=== PATIENT | female | born 2000 | race Two or more races ===

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

== ENCOUNTER 2019-07-28 15:07 | Emergency (ER) | payer OTHER ==
[2019-07-28 15:13] VITALS: BP 129/48; PULSE 77; TEMP 98.2; BMI 21.9
[2019-07-28] MEDS ORDERED: ALBUTEROL SO4 2.5/IPRATROPIUM 0.5 INH SOL 3 ML VIAL.NEB. NEB ONE ×5 (16:33→17:24)
[2019-07-28] MEDS ORDERED: predniSONE 20 MG TABLET (UD) PO ONE (16:33)
--- NOTE | 2019-07-28 16:37 | PDOC ---
History of Present Illness - General Chief Complaint: Asthma Stated Complaint: ASTHMA Time Seen by Provider: 07/28/19 16:31 History Source: Patient Exam Limitations: No Limitations - History of Present Illness Is this a multiple visit Asthma Patient?: No Associated Symptoms: reports: cough, wheezing. denies: chest pain/soreness, earache, facial pain, fever/chills, muscle aches, nasal congestion, nasal drainage, shortness of breath, sinus infection, sore throat Past History - Travel Traveled outside of the country in the last 30 days: No Close contact w/someone who was outside of country & ill: No - Past Medical History Allergies/Adverse Reactions: Allergies Allergy/AdvReac Type Severity Reaction Status Date / Time No Known Allergies Allergy Verified 11/20/18 15:59 Home Medications: Ambulatory Orders Benzonatate [Tessalon Pearls -] 100 mg PO TID #21 capsule 07/28/19 predniSONE [Deltasone -] 40 mg PO DAILY #8 tablet 07/28/19 Asthma: Yes COPD: No - Immunization History Immunization Up to Date: Yes - Psycho Social/Smoking Cessation Hx Smoking History: Never smoked Have you smoked in the past 12 months: No Hx Alcohol Use: No Drug/Substance Use Hx: No Review of Systems - Review of Systems Constitutional: No: Chills, Fever Respiratory: Yes: Cough, Wheezing, Productive cough. 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 She does complain of cough and wheezing for 2 weeks. Nebulizing not every night with little relief. A non-smoker Patient given to trial of duo nebs and prednisone with relief. Breath sounds is much better. 07/28/19 17:42 Discharge - Discharge Information Problems reviewed: Yes Clinical Impression/Diagnosis: Asthma exacerbation Qualifiers: Asthma severity: mild Asthma persistence: intermittent Qualified Code(s): J45.21 - Mild intermittent asthma with (acute) exacerbation Condition: Stable Disposition: HOME - Admission No - Additional Discharge Information Prescriptions: Benzonatate [Tessalon Pearls -] 100 mg PO TID #21 capsule predniSONE [Deltasone -] 40 mg PO DAILY #8 tablet Prescription Drug Monitoring Program (I-STOP) results: I-STOP not reviewed - Follow up/Referral Referrals: Alivia Sun DO [Primary Care Provider] - - Patient Discharge Instructions Patient Printed Discharge Instructions: Asthma -- Adult - Post Discharge Activity Work/Back to School Note: Back to Work
[2019-07-28] MEDS ORDERED: predniSONE 20 MG TABLET (UD) ONE (16:46)
== END 2019-07-28 17:45 | disposition home or self-care (01) ==
LOC: JERFT 15:07
PROC: 3E0F7GC Introduction of Other Therapeutic Substance into Respiratory Tract, Via Natural or Artificial Opening (ICD-10-PCS; principal; 2019-07-28)
PROC: 3E0F7GC Introduction of Other Therapeutic Substance into Respiratory Tract, Via Natural or Artificial Opening (ICD-10-PCS; 2019-07-28)
DX: J45.21 Mild intermittent asthma with (acute) exacerbation (principal)
CPT/HCPCS: 94640; 99281-25

== ENCOUNTER 2019-10-07 12:20 | Emergency (ER) | payer OTHER ==
[2019-10-07 12:24] VITALS: BP 115/58; PULSE 62; TEMP 98; BMI 23.5
[2019-10-07] MEDS ORDERED: KETOROLAC TROMETHAMINE 30 MG/1 ML VIAL IM ONE (12:39)
[2019-10-07] MEDS ORDERED: CYCLOBENZAPRINE HCL 10 MG TABLET (FP) PO ONE (12:39)
[2019-10-07] MEDS ORDERED: CYCLOBENZAPRINE HCL 10 MG TABLET (FP) ONE (12:45)
[2019-10-07] MEDS ORDERED: KETOROLAC TROMETHAMINE 30 MG/1 ML VIAL ONE (12:45)
--- NOTE | 2019-10-07 12:50 | PDOC ---
History of Present Illness - General Chief Complaint: Pain Stated Complaint: BACK PAIN Time Seen by Provider: 10/07/19 12:27 History Source: Patient Exam Limitations: No Limitations Past History - Past Medical History Allergies/Adverse Reactions: Allergies Allergy/AdvReac Type Severity Reaction Status Date / Time No Known Allergies Allergy Verified 10/07/19 12:24 Home Medications: Ambulatory Orders Benzonatate [Tessalon Pearls -] 100 mg PO TID #21 capsule 07/28/19 RX: predniSONE [Deltasone -] 40 mg PO DAILY #8 tablet 07/28/19 Cyclobenzaprine HCl [Flexeril 10 mg] 10 mg PO TID PRN #21 tablet 10/07/19 Asthma: Yes COPD: No Other medical history: scoliosis - Immunization History Immunization Up to Date: Yes - Psycho Social/Smoking Cessation Hx Smoking History: Never smoked Have you smoked in the past 12 months: No Hx Alcohol Use: No Drug/Substance Use Hx: No *Physical Exam - Vital Signs Last Vital Signs Temp Pulse Resp BP Pulse Ox 98 F 62 18 115/58 L 99 10/07/19 12:22 10/07/19 12:22 10/07/19 12:22 10/07/19 12:22 10/07/19 12:22 - Physical Exam General Appearance: No: Apparent Distress Respiratory/Chest: positive: Lungs Clear, Normal Breath Sounds. negative: Respiratory Distress Cardiovascular: positive: Regular Rhythm, Regular Rate, S1, S2. negative: Murmur Gastrointestinal/Abdominal: positive: Soft. negative: Tender Musculoskeletal: positive: Other (+B/L cervical/thoracic paraspinal muscle tenderness, no midline tenderness, slight scoliosis along thoracic spine) Neurologic: positive: Alert, Motor Strength 5/5, Other (normal gait) ED Treatment Course - RADIOLOGY Radiology Studies Ordered: Category Date Time Status SPINE-CERVICAL [RAD] Stat Radiology 10/07/19 12:39 Ordered SPINE-LUMBAR ONLY [RAD] Stat Radiology 10/07/19 12:39 Ordered SPINE-THORACIC [RAD] Stat Radiology 10/07/19 12:39 Ordered Medical Decision Making - Medical Decision Making 19 y/o F hx of asthma, scoliosis presents with acute on chronic back pain x 3-4 days due to her scoliosis. States she used to see spine doctor in past, last saw a year ago, and was recommended for physical therapy for 1 month which patient tried but did not help much. States takes Flexeril 5 mg, Motrin or Naprosyn as needed for symptoms but it doesn't seem to help. Mentions having scoliosis since age 13; does not know degree of scoliosis. Has never needed brace or surgery yet for her scoliosis. Denies fever, sob, cp, abd pain, n/v, urinary sxs, numbness/tingling/weakness of extremities. Patient has prior visits to ED for similar sxs. Acute on chronic back pain Plan: Back xrays, Toradol, Flexeril Patient states she is sure she is not as she just finished her menstrual cycle 10/07/19 12:46 Xray shows slight degree of thoracic scoliosis, unchanged from prior Patient feeling better after meds advised f/u with her spinal surgeon 10/07/19 13:19 Discharge - Discharge Information Problems reviewed: Yes Clinical Impression/Diagnosis: Back pain Qualifiers: Back pain location: thoracic back pain Chronicity: chronic Back pain laterality: bilateral Qualified Code(s): M54.6 - Pain in thoracic spine Condition: Stable Disposition: HOME - Admission No - Additional Discharge Information Prescriptions: Cyclobenzaprine HCl [Flexeril 10 mg] 10 mg PO TID PRN #21 tablet PRN Reason: Muscle Spasms Prescription Drug Monitoring Program (I-STOP) results: I-STOP not reviewed - Follow up/Referral - Patient Discharge Instructions Patient Printed Discharge Instructions: DI for Thoracic Back Pain Additional Instructions: Thank you for choosing Health system. It was a pleasure taking care of you. Alternate between Tylenol 650 mg every 4 and Motrin 600 mg every 6 hours as needed for pain Use Flexeril as needed for muscle spasms. This medication can make you drowsy. Heating pads/epsom salt baths may also help Follow-up with spinal doctor for further evaluation Return to the Emergency Department if your symptoms worsen or persist or have other concerning symptoms. - Post Discharge Activity
== END 2019-10-07 13:45 | disposition home or self-care (01) ==
LOC: JERFT 12:20
PROC: 3E0233Z Introduction of Anti-inflammatory into Muscle, Percutaneous Approach (ICD-10-PCS; principal; 2019-10-07)
DX: M54.6 Pain in thoracic spine (principal); M41.84 Other forms of scoliosis, thoracic region
CPT/HCPCS: 72050-TC-FY; 72070-TC-FY; 72100-TC-FY; 96372; 99284-25

== ENCOUNTER 2021-02-04 12:31 | Emergency (ER) | payer OTHER ==
[2021-02-04 12:37] VITALS: BP 115/86; PULSE 93; TEMP 97.9; BMI 20.9
[2021-02-04] MEDS ORDERED: SODIUM CHLORIDE 1,000 ML IV STA (13:33)
[2021-02-04] MEDS ORDERED: ACETAMINOPHEN 1000 MG/100 ML VIAL (NON FORMULARY) IVPB ONE (13:33)
[2021-02-04] MEDS ORDERED: METOCLOPRAMIDE HCL INJECTION 10 MG/2 ML VIAL IVPUSH ONE (13:33)
== END 2021-02-04 16:29 | disposition home or self-care (01) ==
LOC: JER 12:31 → JERFT 12:31
PROC: 3E0333Z Introduction of Anti-inflammatory into Peripheral Vein, Percutaneous Approach (ICD-10-PCS; principal; 2021-02-04)
PROC: 3E033GC Introduction of Other Therapeutic Substance into Peripheral Vein, Percutaneous Approach (ICD-10-PCS; 2021-02-04)
PROC: 3E033GC Introduction of Other Therapeutic Substance into Peripheral Vein, Percutaneous Approach (ICD-10-PCS; 2021-02-04)
PROC: 3E0337Z Introduction of Electrolytic and Water Balance Substance into Peripheral Vein, Percutaneous Approach (ICD-10-PCS; 2021-02-04)
DX: G43.909 Migraine, unspecified, not intractable, without status migrainosus (principal); Z11.52 Encounter for screening for COVID-19
CPT/HCPCS: 99284-25; C9803; J0131; U0003; U0005

== ENCOUNTER 2021-07-03 12:01 | Emergency (ER) | payer OTHER ==
[2021-07-03 12:17] VITALS: BP 105/61; PULSE 76; TEMP 98.9; BMI 19.3
[2021-07-03] MEDS ORDERED: TETRACAINE 0.5% HCL 0.6ML DROPPER.BOTTLE OS ONE (13:25)
[2021-07-03] MEDS ORDERED: FLUORESCEIN NA 1 EA STRIP OS ONE (13:25)
[2021-07-03] MEDS ORDERED: TETRACAINE 0.5% OPHTH SOLN 2 ML BOTTLE ONE (13:29)
[2021-07-03] MEDS ORDERED: FLUORESCEIN NA 1 EA STRIP ONE (13:29)
== END 2021-07-03 14:26 | disposition home or self-care (01) ==
LOC: JERFT 12:01
DX: H10.9 Unspecified conjunctivitis (principal)
CPT/HCPCS: 99283-25

== ENCOUNTER 2021-11-23 01:49 | Emergency (ER) | payer OTHER ==
[2021-11-23 02:26] VITALS: BP 115/70; PULSE 71; TEMP 98
[2021-11-23] MEDS ORDERED: SODIUM CHLORIDE 0.9% 500 ML INFUS.BAG IV ONE (02:35)
[2021-11-23] MEDS ORDERED: ONDANSETRON 4 MG/2 ML VIAL IVPB ONE (02:35)
[2021-11-23 02:42] LABS: EPI CELLS 26 /uL (0-25.1); HYALINE CASTS 11 /uL (0-3.1); PH,URINE 6.5 (5.0-8.0); URINE APPEARANCE CLOUDY; URINE BACTERIA 1506 /uL (0-1359); URINE BILIRUBIN NEGATIVE (NEGATIVE); URINE COLOR YELLOW; URINE GLUCOSE (UA) NEGATIVE (NEGATIVE); URINE KETONE NEGATIVE (NEGATIVE); URINE LEUK ESTERASE 3+ (NEGATIVE); URINE NITRITE NEGATIVE (NEGATIVE); URINE PROTEIN NEGATIVE (NEGATIVE); URINE RBC 9 /uL (0-23.9); URINE WBC 501 /uL (0-25.8)
[2021-11-23 02:44] LABS: HCG,QUALITATIVE URINE Negative
[2021-11-23] MEDS ORDERED: ONDANSETRON 4 MG/2 ML VIAL ONE (02:45)
[2021-11-23 03:19] LABS: CALCIUM 8.9 mg/dL (8.5-10.1)
[2021-11-23 03:20] LABS: ALBUMIN 3.8 g/dl (3.4-5.0); BLOOD UREA NITROGEN 16.4 mg/dL (7-18)
[2021-11-23 03:23] LABS: CREATININE 0.6 mg/dL (0.55-1.3)
[2021-11-23 03:24] LABS: TOT PROT 6.9 g/dl (6.4-8.2)
[2021-11-23 03:25] LABS: BILIRUBIN,TOTAL 0.4 mg/dL (0.2-1)
[2021-11-23 03:30] LABS: BASO % 0.6 % (0-2.0); EOS % 2.9 % (0-4.5); HEMATOCRIT 36.2 % (32.4-45.2); HEMOGLOBIN 12.2 GM/dL (10.7-15.3); LYMPH % 32.7 % (8-40); MCH 28.3 pg (25.7-33.7); MCHC 33.8 g/dl (32.0-36.0); MEAN CELL VOLUME 83.9 fl (80-96); MEAN PLT VOLUME 7.9 fl (7.5-11.1); MONO % 8.1 % (3.8-10.2); NEUT % 55.7 % (42.8-82.8); PLATELET COUNT 240 10^3/uL (134-434); RBC 4.31 M/mm3 (3.60-5.2); RDW 13.1 % (11.6-15.6)
[2021-11-23] MEDS ORDERED: LIDOCAINE HCL/PF 1% SDV 5ML VIAL ONE (05:25)
== END 2021-11-23 05:40 | disposition home or self-care (01) ==
LOC: JER 01:49
PROC: 3E02329 Introduction of Other Anti-infective into Muscle, Percutaneous Approach (ICD-10-PCS; principal; 2021-11-23)
PROC: 3E033GC Introduction of Other Therapeutic Substance into Peripheral Vein, Percutaneous Approach (ICD-10-PCS; 2021-11-23)
DX: R42 Dizziness and giddiness (principal); R11.0 Nausea; N98.9 Complication associated with artificial fertilization, unspecified
CPT/HCPCS: 36415; 80053; 81003; 82962; 83690; 84443; 84484; 84703; 85025; 87086; 87491; 87591; 87661; 93005; 93010; 99284-25

== ENCOUNTER 2022-03-23 18:45 | Emergency (ER) | payer OTHER ==
[2022-03-23 18:51] VITALS: BP 92/60; PULSE 76; RESP 18; TEMP 97
== END 2022-03-23 21:16 | disposition home or self-care (01) ==
LOC: JERFT 18:45
DX: N89.8 Other specified noninflammatory disorders of vagina (principal)
CPT/HCPCS: 87070; 87077; 87205; 99283-25

== ENCOUNTER 2022-09-13 13:46 | Emergency (ER) | payer OTHER ==
[2022-09-13 13:58] VITALS: BP 112/63; PULSE 87; RESP 17; TEMP 97.8; BMI 20.1
[2022-09-13] MEDS ORDERED: ALPRAZolam 0.25 MG TABLET PO ONE (15:59)
[2022-09-13] MEDS ORDERED: ALPRAZolam 0.25 MG TABLET ONE (16:13)
[2022-09-13 16:57] LABS: BASO % 0.2 % (0-2.0); EOS % 2.1 % (0-4.5); HEMATOCRIT 35.1 % (32.4-45.2); HEMOGLOBIN 11.7 GM/dL (10.7-15.3); LYMPH % 31.1 % (8-40); MCH 27.8 pg (25.7-33.7); MCHC 33.4 g/dl (32.0-36.0); MEAN CELL VOLUME 83.2 fl (80-96); MEAN PLT VOLUME 8.5 fl (7.5-11.1); MONO % 5.9 % (3.8-10.2); NEUT % 60.7 % (42.8-82.8); PLATELET COUNT 243 10^3/uL (134-434); RBC 4.22 M/mm3 (3.60-5.2); RDW 13.8 % (11.6-15.6); WHITE BLOOD COUNT 7.5 K/mm3 (4.0-10.0)
[2022-09-13 17:17] LABS: CALCIUM 9.2 mg/dL (8.5-10.1)
[2022-09-13 17:18] LABS: BLOOD UREA NITROGEN 14.6 mg/dL (7-18); MAGNESIUM 2.1 mg/dL (1.8-2.4)
[2022-09-13 17:19] LABS: EPI CELLS >36 /uL (0-25.1); HYALINE CASTS 1 /uL (0-3.1); PH,URINE 8.5 (5.0-8.0); URINE APPEARANCE CLEAR; URINE BACTERIA 192 /uL (0-1359); URINE BILIRUBIN NEGATIVE (NEGATIVE); URINE COLOR YELLOW; URINE GLUCOSE (UA) NEGATIVE (NEGATIVE); URINE KETONE TRACE (NEGATIVE); URINE LEUK ESTERASE NEGATIVE (NEGATIVE); URINE NITRITE NEGATIVE (NEGATIVE); URINE PROTEIN 1+ (NEGATIVE); URINE RBC 21 /uL (0-23.9); URINE WBC 7 /uL (0-25.8)
[2022-09-13 17:20] LABS: HCG,QUALITATIVE URINE Negative
[2022-09-13 17:22] LABS: BILIRUBIN,TOTAL 0.4 mg/dL (0.2-1); TOT PROT 6.8 g/dl (6.4-8.2)
[2022-09-13 17:35] LABS: CREATININE 0.6 mg/dL (0.55-1.3)
== END 2022-09-13 18:06 | disposition home or self-care (01) ==
LOC: JER 13:46
DX: F41.9 Anxiety disorder, unspecified (principal)
CPT/HCPCS: 36415; 80053; 81003; 83735; 84443; 84703; 85025; 93005; 93010; 99284-25

== ENCOUNTER 2023-03-23 15:35 | Emergency (ER) | payer OTHER ==
[2023-03-23 15:40] VITALS: BP 105/66; PULSE 80; RESP 18; BMI 20.1
[2023-03-23] MEDS ORDERED: diphenhydrAMINE HCL 25 MG CAPSULE (FP) PO ONE ×2 (16:02→16:04)
[2023-03-23 16:10] VITALS: TEMP 97.9
== END 2023-03-23 16:13 | disposition home or self-care (01) ==
LOC: JERFT 15:35
DX: R21 Rash and other nonspecific skin eruption (principal); L50.9 Urticaria, unspecified
CPT/HCPCS: 99283-25